=== PATIENT | female | born 1970 | race Two or more races ===

== ENCOUNTER 2018-04-27 08:10 | Emergency (ER) | payer BC ==
[~2018-04-27] VITALS: Ht 154.9 cm; Wt 71.7 kg
[2018-04-27 08:23] VITALS: BP 135/91
[2018-04-27 08:45] LABS: Basophils # (auto) 0.1 uL; Eosinophils # (auto) 0.1 uL; Eosinophils % (auto) 0.9 % (0.0-7.0); Hematocrit 44.8 % (36.0-46.0); Lymphocytes # (auto) 1.7 uL; Lymphocytes % (auto) 19.9 % (10.0-50.0); Mean Corpuscular Hemoglobin 30.5 pg (28.0-32.0); Mean Corpuscular Hgb Conc. 33.4 g/dL (32.0-36.0); Mean Corpuscular Volume 91.3 fL (80.0-100.0); Monocytes # (auto) 0.4 uL; Monocytes % (auto) 5.1 % (0.0-12.0); Neutrophils # (auto) 6.1 uL; Neutrophils % (auto) 73.1 % (37.0-80.0); Nucleated Red Blood Cells % 0.1 %; Platelet Count (auto) 286 10^3/uL (140-450); Red Blood Cells 4.91 10^6/uL (4.0-5.20); Red Cell Distribution Width 12.9 % (11.8-14.3); White Blood Cell 8.4 10^3/uL (4.4-10.8)
[2018-04-27 09:23] LABS: Alanine Aminotransferase 21 U/L (13-56); Albumin 4.4 g/dL (3.4-5.0); Alkaline Phosphatase 107 U/L (45-117); Aspartate Aminotransferase 16 U/L (15-37); BUN/Creatinine Ratio 15.7; Bilirubin, Total 0.8 mg/dL (0.2-1.0); Blood Urea Nitrogen 11 mg/dL (7-18); Calcium 9.3 mg/dL (8.5-10.1); Carbon Dioxide 26 mmol/L (21-32); GFR African American 115 mL/min; GFR Non-African American 95 mL/min; Glucose 117 mg/dL (74-106); Total Protein 8.6 g/dL (6.4-8.2)
[2018-04-27 09:31] LABS: Sodium 140 mmol/L (136-145)
[2018-04-27 09:32] LABS: Anion Gap 7 (5-15); Chloride 107 mmol/L (98-107)
== END 2018-04-27 10:54 | disposition home or self-care (01) ==
LOC: ER 08:10
DX: R07.89 Other chest pain (principal); Z88.6 Allergy status to analgesic agent; Z88.8 Allergy status to other drugs, medicaments and biological substances
CPT/HCPCS: 36415; 71046; 80053; 84484; 85025; 93005